=== PATIENT | female | born 1970 | race Caucasian/White ===

== ENCOUNTER 2017-11-05 12:39 | Outpatient (CLI) | payer BC ==
--- NOTE | 2017-11-05 14:13 | RAD ---
PA AND LATERAL CHEST: Indication: Dyspnea. Comparison: None. FINDINGS: Lungs are clear. Cardiomediastinal silhouette is within normal limits. There are cholecystectomy clip s within the right upper quadrant. No acute osseous abnormality is evident. IMPRESSION: No acute cardiopulmonary abnormality. POS: [facility]
== END 2017-11-05 12:40 | disposition home or self-care (01) ==
LOC: RAD 12:39
PROVIDERS: ATTEND Internal Medicine Critical Care Medicine
DX: R06.00 Dyspnea, unspecified (principal)
CPT/HCPCS: 71046

== ENCOUNTER 2022-12-07 10:51 | Inpatient (IN) | payer BC ==
[2022-12-07 11:33] LABS: #Basophils 0.1 thou/uL (0.0-0.2); #Eosinphils 0.1 thou/uL (0.0-0.7); #Monocytes 0.8 thou/uL (0.11-0.59); #Neutrophils 6.2 thou/uL (1.40-6.50); %Basophils 0.5 % (0.0-1.0); %Eosinophils 0.5 % (0.0-10.0); %Lymphocytes 22.3 % (21.0-51.0); %Neutrophils 67.2 % (42.0-75.0); Hemoglobin 12.9 g/dL (12.0-16.0); Mean Corpuscular HGB CONC 32.3 g/dL (32.0-36.0); Mean Corpuscular Hemoglobin 32.2 pg (27.0-31.0); Mean Corpuscular Volume 99.5 fl (78.0-98.0); Mean Platelet Volume 10.1 fL (7.4-10.4); Platelet Count 237 10x3/uL (130-400); RBC Distribution Width 13.4 % (11.5-14.5); Red Blood Cell (RBC) Count 4.01 mill/uL (4.20-5.40); White Blood Cell (WBC) Count 9.2 10x3/uL (4.8-10.8)
[2022-12-07] MEDS ORDERED: Nitroglycerin 0.4 MG TAB 1 EACH ONE (11:44)
[2022-12-07] MEDS ORDERED: Aspirin Chewable 81 MG TAB ONE (11:44)
[2022-12-07 12:09] LABS: ALT (SGPT) 17 U/L (8-55); AST (SGOT) 17 U/L (5-34); Albumin 4.4 g/dL (3.5-5.0); Alkaline Phosphatase 55 U/L (40-110); Anion Gap 10 mmol/L (10-20); BUN (Urea Nitrogen) 10 mg/dL (9.8-20.1); Bilirubin, Total 0.2 mg/dL (0.2-1.2); CK (CPK) 42 U/L (29-168); Calc. Creatinine Clearance 0 mL/min (70-130); Calcium 9.4 mg/dL (7.8-10.44); Carbon Dioxide 25 mmol/L (22-29); Chloride 105 mmol/L (98-107); Estimated GFR 56; Globulin 2.9 g/dL (2.4-3.5); Glucose 79 mg/dL (70-105); Lipase 38 U/L (8-78); Magnesium 2.1 mg/dL (1.6-2.6); Potassium 3.4 mmol/L (3.5-5.1); Protein, Total 7.3 g/dL (6.0-8.3); Sodium 137 mmol/L (136-145)
[2022-12-07] MEDS ORDERED: Ondansetron PF 4 MG/2 ML Vial ONE (12:25)
[2022-12-07] MEDS ORDERED: Morphine 4 MG/ML VIAL ONE (12:25)
[2022-12-07] MEDS ORDERED: Acetaminophen 325 MG TAB PO PRN (13:10)
[2022-12-07] MEDS ORDERED: Ondansetron PF 4 MG/2 ML Vial IVP PRN (13:10)
[2022-12-07 14:22] LABS: Troponin I Less than 0.010 ng/mL (< 0.028)
[2022-12-07 15:28] VITALS: BMI 22.3
[2022-12-07] MEDS: Morphine 4 MG/ML VIAL SLOW IVP PRN ×2 (16:37→20:25)
[2022-12-07 16:39] LABS: Troponin I Less than 0.010 ng/mL (< 0.028)
[2022-12-07] MEDS ORDERED: Nitroglycerin 0.2mg/Hour PATCH TD SCH (17:00)
[2022-12-08] MEDS: Transdermal Patch Removal TOP SCH (03:38)
[2022-12-08 04:49] LABS: #Eosinphils 0.1 thou/uL (0.0-0.7); #Monocytes 0.6 thou/uL (0.11-0.59); #Neutrophils 4.2 thou/uL (1.40-6.50); %Basophils 0.6 % (0.0-1.0); %Eosinophils 1.1 % (0.0-10.0); %Lymphocytes 24.6 % (21.0-51.0); %Monocytes 9.5 % (0.0-10.0); %Neutrophils 63.9 % (42.0-75.0); Hemoglobin 11.3 g/dL (12.0-16.0); Mean Corpuscular HGB CONC 33.1 g/dL (32.0-36.0); Mean Corpuscular Hemoglobin 32.1 pg (27.0-31.0); Mean Corpuscular Volume 96.9 fl (78.0-98.0); Mean Platelet Volume 10.4 fL (7.4-10.4); Platelet Count 187 10x3/uL (130-400); RBC Distribution Width 13.2 % (11.5-14.5); Red Blood Cell (RBC) Count 3.52 mill/uL (4.20-5.40); White Blood Cell (WBC) Count 6.5 10x3/uL (4.8-10.8)
[2022-12-08 04:57] LABS: Hemoglobin A1c 4.8 % (4.0-6.0)
[2022-12-08 06:35] LABS: Anion Gap 11 mmol/L (10-20); BUN (Urea Nitrogen) 11 mg/dL (9.8-20.1); Calc. Creatinine Clearance 63 mL/min (70-130); Calcium 8.5 mg/dL (7.8-10.44); Carbon Dioxide 25 mmol/L (22-29); Cardiac Risk 4.1 (Less than 4.5); Chloride 107 mmol/L (98-107); Cholesterol 148 mg/dl (< 200 Desired); Estimated GFR 67; Glucose 87 mg/dL (70-105); HDL Cholesterol 36 mg/dL (>60 Neg Risk); LDL Cholesterol, Calculated 97 mg/dL; Potassium 4.1 mmol/L (3.5-5.1); Sodium 139 mmol/L (136-145); Triglycerides 76 mg/dL (Less than 150)
[2022-12-08] MEDS ORDERED: Non-Formulary Item 1 EACH (Methocarbamol [Methocarbamol] 750 MG Tablet) PO PRN (07:09)
[2022-12-08] MEDS ORDERED: Methocarbamol 500 MG TAB PO PRN (08:03)
[2022-12-08] MEDS ORDERED: TRAMADOL HCL 200 MG PO SCH (09:00)
[2022-12-08] MEDS ORDERED: Non-Formulary Item 1 EACH (Gabapentin [Gabapentin] 800 MG Tablet) PO SCH (09:00)
[2022-12-08] MEDS: Topiramate 100 MG TAB PO SCH ×2 (09:00→20:59)
[2022-12-08] MEDS ORDERED: Non-Formulary Item 1 EACH (Tramadol Hcl [Tramadol Hcl Er] 200 MG Tab.Er.24h) PO SCH (09:00)
[2022-12-08] MEDS: Aspirin Chewable 81 MG TAB PO SCH (13:08)
[2022-12-08] MEDS: Gabapentin 400 MG CAP PO SCH ×2 (13:09→20:43)
[2022-12-08] MEDS: Venlafaxine 75 MG TAB PO SCH (13:10)
[2022-12-08] MEDS ORDERED: Regadenoson 0.4 MG/5 ML SYRINGE ONE (14:48)
[2022-12-08] MEDS ORDERED: SUMAtriptan Succinate 6 MG/0.5 ML VIAL SC PRN (15:08)
[2022-12-08] MEDS: traMADol HCl 50 MG TAB PO SCH ×2 (15:43→20:45)
[2022-12-08] MEDS ORDERED: Ketorolac Tromethamine 30 MG/ML VIAL IVP SCH (17:45)
[2022-12-08 19:01] LABS: Troponin I 0.017 ng/mL (< 0.028)
[2022-12-08] MEDS: ALPRAZolam 0.5 MG TAB PO SCH (20:43)
[2022-12-08] MEDS: Hydroxychloroquine Sulfate 200 MG TAB PO SCH (20:43)
[2022-12-08] MEDS: Methocarbamol 500 MG TAB PO SCH (20:44)
[2022-12-08] MEDS: traZODone HCl 50 MG TAB PO SCH (20:45)
[2022-12-08] MEDS ORDERED: Ibuprofen 600 MG TAB PO SCH (22:00)
[2022-12-08 22:27] LABS: Troponin I Less than 0.010 ng/mL (< 0.028)
[2022-12-09] MEDS: traMADol HCl 50 MG TAB PO SCH ×4 (05:06→21:20)
[2022-12-09] MEDS: Transdermal Patch Removal TOP SCH (05:06)
[2022-12-09] MEDS: RIMEGEPANT SULFATE 75 MG SL PRN (05:07)
[2022-12-09 05:35] LABS: Troponin I Less than 0.010 ng/mL (< 0.028)
[2022-12-09] MEDS ORDERED: Ibuprofen 600 MG TAB PO SCH (08:00)
[2022-12-09] MEDS: Methocarbamol 500 MG TAB PO SCH ×2 (09:00→21:20)
[2022-12-09] MEDS ORDERED: Acetaminophen 500 MG TAB PO PRN (09:58)
[2022-12-09] MEDS ORDERED: Ibuprofen 600 MG TAB PO PRN (09:58)
[2022-12-09] MEDS: Aspirin Chewable 81 MG TAB PO SCH (10:51)
[2022-12-09] MEDS: Gabapentin 400 MG CAP PO SCH ×2 (10:52→21:19)
[2022-12-09] MEDS: Topiramate 100 MG TAB PO SCH ×2 (10:52→21:21)
[2022-12-09] MEDS: Venlafaxine 75 MG TAB PO SCH (10:53)
[2022-12-09] MEDS ORDERED: Ketorolac Tromethamine 30 MG/ML VIAL IVP SCH (12:15)
[2022-12-09] MEDS: Ibuprofen 600 MG TAB PO SCH (17:07)
[2022-12-09] MEDS: ALPRAZolam 0.5 MG TAB PO SCH (21:19)
[2022-12-09] MEDS: traZODone HCl 50 MG TAB PO SCH (21:20)
[2022-12-09] MEDS: Hydroxychloroquine Sulfate 200 MG TAB PO SCH (21:20)
[2022-12-10] MEDS: traMADol HCl 50 MG TAB PO SCH ×4 (04:06→17:06)
[2022-12-10 05:47] LABS: Troponin I Less than 0.010 ng/mL (< 0.028)
[2022-12-10] MEDS: Aspirin Chewable 81 MG TAB PO SCH (08:00)
[2022-12-10] MEDS: Methocarbamol 500 MG TAB PO SCH ×2 (08:01→21:04)
[2022-12-10] MEDS: Venlafaxine 75 MG TAB PO SCH (08:02)
[2022-12-10] MEDS: Gabapentin 400 MG CAP PO SCH ×2 (08:02→21:03)
[2022-12-10] MEDS: Ibuprofen 600 MG TAB PO SCH ×3 (08:03→17:06)
[2022-12-10] MEDS: Topiramate 100 MG TAB PO SCH ×2 (08:04→21:04)
[2022-12-10] MEDS: RIMEGEPANT SULFATE 75 MG SL PRN (14:26)
[2022-12-10] MEDS: ALPRAZolam 0.5 MG TAB PO SCH (21:03)
[2022-12-10] MEDS: traZODone HCl 50 MG TAB PO SCH (21:04)
[2022-12-10] MEDS: Hydroxychloroquine Sulfate 200 MG TAB PO SCH (21:04)
[2022-12-11] MEDS: traMADol HCl 50 MG TAB PO SCH ×4 (00:09→16:03)
[2022-12-11 05:24] LABS: Anion Gap 9 mmol/L (10-20); BUN (Urea Nitrogen) 12 mg/dL (9.8-20.1); Calc. Creatinine Clearance 65 mL/min (70-130); Calcium 8.6 mg/dL (7.8-10.44); Carbon Dioxide 24 mmol/L (22-29); Chloride 108 mmol/L (98-107); Estimated GFR 70; Glucose 99 mg/dL (70-105); Potassium 3.9 mmol/L (3.5-5.1); Sodium 137 mmol/L (136-145)
[2022-12-11] MEDS: Methocarbamol 500 MG TAB PO SCH (05:28)
[2022-12-11] MEDS: Gabapentin 400 MG CAP PO SCH (05:28)
[2022-12-11] MEDS: Aspirin Chewable 81 MG TAB PO SCH (05:29)
[2022-12-11] MEDS: Venlafaxine 75 MG TAB PO SCH (05:29)
[2022-12-11] MEDS: Topiramate 100 MG TAB PO SCH (05:29)
[2022-12-11] MEDS: Ibuprofen 600 MG TAB PO SCH ×3 (08:01→16:04)
[2022-12-11] MEDS ORDERED: Iopamidol 370 76% 100 ML VIAL ONE (09:15)
[2022-12-11] MEDS ORDERED: Lidocaine 1% (PF) 30 ML VIAL ONE ×2 (10:45→13:37)
[2022-12-11] MEDS ORDERED: Communication Order-Pharmacy FS SCH (10:45)
[2022-12-11] MEDS ORDERED: fentaNYL 50 mcg/mL 1 mL Vial ONE (14:20)
[2022-12-11] MEDS ORDERED: Midazolam HCl 2 mg/2 ml Vial ONE (14:20)
[2022-12-11 21:23] VITALS: BP 126/73; TEMP 98.1
== END 2022-12-11 20:45 | disposition home or self-care (01) | DRG 287 ==
LOC: SUATTDRO 10:51 → ERS 10:51 → 2SW 15:05 → OBSVTOIN 12-09 15:28
PROVIDERS: ADMIT Internal Medicine; ATTEND Family Medicine
PROC: 4A023N7 Measurement of Cardiac Sampling and Pressure, Left Heart, Percutaneous Approach (ICD-10-PCS; principal; 2022-12-11)
PROC: B2111ZZ Fluoroscopy of Multiple Coronary Arteries using Low Osmolar Contrast (ICD-10-PCS; 2022-12-11)
DX: R07.9 Chest pain, unspecified (principal); M32.9 Systemic lupus erythematosus, unspecified; M06.9 Rheumatoid arthritis, unspecified; I73.00 Raynaud's syndrome without gangrene; R00.1 Bradycardia, unspecified; I10 Essential (primary) hypertension; M54.9 Dorsalgia, unspecified; G89.29 Other chronic pain; G43.909 Migraine, unspecified, not intractable, without status migrainosus; K21.9 Gastro-esophageal reflux disease without esophagitis; F39 Unspecified mood [affective] disorder; M79.7 Fibromyalgia; Z79.899 Other long term (current) drug therapy; Z82.49 Family history of ischemic heart disease and other diseases of the circulatory system
CPT/HCPCS: 36415; 71045; 78452; 80048; 80053; 80061; 82550; 83036; 83690; 83735; 83880; 84443; 84484; 85025; 85652; 86140; 93005; 93010; 93017; 93306; 93458; 94760; 96372; 96374; 96375; 96376; 99152; A9500; C1769; G0378; J1650; J1885; J2001; J2250; J2270; J2405; J2785; J3010; J3030; Q9967

== ENCOUNTER 2023-08-01 12:37 | Outpatient (CLI) | payer BC ==
[~2023-08-01 12:37] MED LIST: Iopamidol 370 76% 100 ML VIAL ONE
== END 2023-08-01 12:38 | disposition home or self-care (01) ==
LOC: CT 12:37
PROVIDERS: ATTEND Student in an Organized Health Care Education/Training Program
DX: R91.8 Other nonspecific abnormal finding of lung field (principal)
CPT/HCPCS: 71275

== ENCOUNTER 2024-04-01 09:55 | Outpatient (CLI) | payer BC | END 2024-04-01 09:56 | disposition home or self-care (01) | LOC: ULT 09:55 | DX: R94.5 Abnormal results of liver function studies (principal); R68.81 Early satiety | CPT/HCPCS: 76705 ==